=== PATIENT | female | born 1975 | race Caucasian/White ===

== ENCOUNTER 2018-05-08 12:51 | Emergency (ER) | payer OTHER ==
[2018-05-08] MEDS ORDERED: Sodium Chloride 0.9% 1,000 ML IV ONE (13:10)
[2018-05-08 13:33] LABS: SQUAMOUS EPITHIAL 90 /hpf (0-5); URINE BACTERIA OCC (<OCC); URINE BILIRUBIN NEGATIVE (NEGATIVE); URINE BLOOD 1+ (NEGATIVE); URINE CLARITY Hazy (Clear); URINE COLOR Amber (YELLOW); URINE GLUCOSE (UA) NORMAL (Normal); URINE LEUKOCYTE ESTERASE 3+ Leu/uL (Negative); URINE PROTEIN 1+ mg/dL (NEGATIVE)
[2018-05-08 13:40] LABS: BASO % 0.6 % (0.0-2.0); EOS # 0.3 K/uL (0.0-0.7); EOS % 3.4 % (0.0-4.0); LYMPH # 2.1 K/uL (1.0-4.3); LYMPH % 26.4 % (20.0-40.0); MEAN CELL VOLUME 91.2 fL (81.0-99.0); MEAN CORPUSCULAR HEMOGLOBIN 31.3 pg (27.0-31.0); MEAN CORPUSCULAR HGB CONC 34.4 g/dL (33.0-37.0); MEAN PLATELET VOLUME 9.2 fL (7.2-11.7); MONO # 0.5 K/uL (0.0-0.8); MONO % 6.6 % (0.0-10.0); NEUT # 5.1 K/uL (1.8-7.0); RBC 4.15 Mil/uL (3.80-5.20); RED CELL DISTRIBUTION WIDTH 13.5 % (11.5-14.5); WHITE BLOOD COUNT 8.1 K/uL (4.8-10.8)
[2018-05-08 14:10] LABS: ALB/GLOB RATIO 1.3 (1.0-2.1); ALBUMIN 4.4 g/dL (3.5-5.0); ALT/SGPT 108 U/L (9-52); AST/SGOT 56 U/L (14-36); BLOOD UREA NITROGEN 13 mg/dL (7-17); CALCIUM 8.7 mg/dl (8.6-10.4); GFR AFRICAN-AMERICAN > 60; GFR NON-AFRICAN AMERICAN > 60; LIPASE 71 U/L (23-300)
[2018-05-08] MEDS ORDERED: Iodixanol 320 MG/ML 100 ML BOTTLE IV ONE (15:52)
--- NOTE | 2018-05-08 16:06 | C.PDOC ---
History Of Present Illness 42 y/o female presents to ED with c/o upper abdominal pain associated with nausea for 4 days. Patient reports questionable cholecystectomy and currently denies recent travel, fever, change in diet, hematuria, constipation, diarrhea, blood in stool or any other complaints at this time. Chief Complaint (Nursing): Abdominal Pain History Per: Patient History/Exam Limitations: no limitations Onset/Duration Of Symptoms: Days Current Symptoms Are (Timing): Still Present Location Of Pain/Discomfort: RUQ, LUQ Past Medical History Reviewed: Historical Data, Nursing Documentation, Vital Signs Vital Signs: Last Vital Signs Temp 99.1 F 05/08/18 17:42 Pulse 75 05/08/18 17:42 Resp 20 05/08/18 17:42 BP 97/53 L 05/08/18 17:42 Pulse Ox 100 05/08/18 17:42 - Medical History PMH: Asthma, Gall Bladder Disease (stones removed) Surgical History: Cholecystectomy, Tonsillectomy, Family History: States: No Known Family Hx - Social History Hx Alcohol Use: Yes Hx Substance Use: No - Immunization History Hx Tetanus Toxoid Vaccination: No Hx Influenza Vaccination: No Hx Pneumococcal Vaccination: No Review Of Systems Constitutional: Negative for: Fever, Chills Gastrointestinal: Positive for: Nausea, Abdominal Pain. Negative for: Vomiting , Diarrhea, Constipation Genitourinary: Negative for: Dysuria, Hematuria Skin: Negative for: Rash Physical Exam - Physical Exam Appears: Non-toxic, No Acute Distress Skin: Warm, Diaphoretic, No Rash Head: Atraumatic, Normacephalic Eye(s): bilateral: Normal Inspection Oral Mucosa: Moist Neck: Normal ROM, Supple Cardiovascular: Rhythm Regular Respiratory: Normal Breath Sounds, No Rales, No Rhonchi, No Wheezing Gastrointestinal/Abdominal: Soft, Tenderness (mild upper quadrants), No Guarding , No Rebound, Other (surgical scar noted to right side of abdomen) Back: No CVA Tenderness, No Paraspinal Tenderness Neurological/Psych: Oriented x3, Normal Speech, Normal Cognition ED Course And Treatment - Laboratory Results Result Diagrams: 05/08/18 13:30 05/08/18 13:30 O2 Sat by Pulse Oximetry: 98 (RA) Pulse Ox Interpretation: Normal Disposition - Disposition Referrals: Shaik Richmond MD [Staff Provider] - Disposition: HOME/ ROUTINE Disposition Time: 17:15 Condition: IMPROVED Additional Instructions: ONIEL ATILES, thank you for letting us take care of you today. Your provider was Israel Miranda DO and you were treated for STOMACH PAIN. The emergency medical care you received today was directed at your acute symptoms. If you were prescribed any medication, please fill it and take as directed. It may take several days for your symptoms to resolve. Return to the Emergency Department if your symptoms worsen, do not improve, or if you have any other problems. Please contact your doctor or call one of the physicians/clinics you have been referred to that are listed on the Patient Visit Information form that is included in your discharge packet. Bring any paperwork you were given at discharge with you along with any medications you are taking to your follow up visit. Our treatment cannot replace ongoing medical care by a primary care provider outside of the emergency department. Thank you for allowing the [facility] team to be part of your care today. Follow up with your primary care doctor in 2-3 days for re-evaluation and further management. Prescriptions: Ibuprofen [Motrin] 600 mg PO Q6 PRN #20 tab PRN Reason: Pain, Moderate (4-7) Instructions: Ovarian Cyst (DC) Forms: [facility] (Niuean) - Clinical Impression Clinical Impression: Ovarian cyst - Scribe Statement The provider has reviewed the documentation as recorded by the Scribrachael Rodriguez All medical record entries made by the Scribe were at my direction and personally dictated by me. I have reviewed the chart and agree that the record accurately reflects my personal performance of the history, physical exam, medical decision making, and the department course for this patient. I have also personally directed, reviewed, and agree with the discharge instructions and disposition.
--- NOTE | 2018-05-08 17:16 | CT ---
PROCEDURE: CT Abdomen and Pelvis with contrast HISTORY: diffuse abdominal pain COMPARISON: None. TECHNIQUE: Contrast dose: 100 mL Visipaque 320 Radiation dose: Total exam DLP = 1139.98 mGy-cm. This CT exam was performed using one or more of the following dose reduction techniques: Automated exposure control, adjustment of the mA and/or kV according to patient size, and/or use of iterative reconstruction technique. FINDINGS: LOWER THORAX: Unremarkable. LIVER: Unremarkable. No gross lesion or ductal dilatation. GALLBLADDER AND BILE DUCTS: Status post cholecystectomy PANCREAS: Unremarkable. No gross lesion or ductal dilatation. SPLEEN: Unremarkable. ADRENALS: Unremarkable. No mass. KIDNEYS AND URETERS: Unremarkable. No hydronephrosis. No solid mass. VASCULATURE: Unremarkable. No aortic aneurysm. BOWEL: Unremarkable. No obstruction. No gross mural thickening. APPENDIX: Normal appendix. PERITONEUM: Trace fluid in cul-de-sac LYMPH NODES: Unremarkable. No enlarged lymph nodes. BLADDER: Nondistended REPRODUCTIVE: Unremarkable uterus. Peripherally enhancing irregularly-shaped left adnexal structure, likely ruptured or involuting left ovarian follicle/cyst. 1.8 cm diameter. BONES: Grade 1 anterolisthesis at L5-S1 without spondylolysis. No acute fracture. OTHER FINDINGS: None. IMPRESSION: Ruptured or involuting left ovarian follicle/cyst, 1.8 cm. Small amount of fluid in cul-de-sac. The remainder of the examination is unremarkable. The 2 call is a augmented bulge and all were 1 that were noted about right total into a now 1 8 over their reassess
[2018-05-08 17:42] VITALS: BP 97/53; PULSE 75; RESP 20; TEMP 99.1
[2018-05-09 00:37] VITALS: O2SAT 98
== END 2018-05-08 17:50 | disposition home or self-care (01) ==
LOC: C.ER 12:51
DX: N83.202 Unspecified ovarian cyst, left side (principal)
CPT/HCPCS: 74177; 80053; 81001; 83690; 84484; 85025; 87086; 96361; 96374; 96375; 99285; J2765; J7030; Q9967

== ENCOUNTER 2018-08-23 07:07 | Emergency (ER) | payer OTHER ==
[2018-08-23 07:33] VITALS: BP 177/85; PULSE 105; RESP 18; TEMP 98.7; O2SAT 100
--- NOTE | 2018-08-23 07:52 | C.PDOC ---
Time Seen by Provider: 08/23/18 07:22 Chief Complaint (Nursing): Lower Extremity Problem/Injury Past Medical History Vital Signs: Last Vital Signs Temp 98.7 F 08/23/18 07:30 Pulse 105 H 08/23/18 07:30 Resp 18 08/23/18 07:30 BP 177/85 H 08/23/18 07:30 Pulse Ox 100 08/23/18 07:30 - Medical History PMH: Asthma, Gall Bladder Disease (stones removed) Surgical History: Cholecystectomy, Tonsillectomy, (x2) Family History: States: Unknown Family Hx - Social History Hx Alcohol Use: Yes Hx Substance Use: No - Immunization History Hx Tetanus Toxoid Vaccination: No Hx Influenza Vaccination: No Hx Pneumococcal Vaccination: No ED Course And Treatment O2 Sat by Pulse Oximetry: 100 Disposition - Disposition Disposition Time: 08:00 Forms: [facility] ([place]an) - POA Present On Arrival: None
--- NOTE | 2018-08-23 07:54 | C.PDOC ---
History Of Present Illness 43-year-old female, presents to the emergency department with complaints of two week duration of left heel pain. Patient seen by dwarf tree grower who gave her Cortisone shot that did not work. 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 Pt notes she returned to dwarf tree grower who advised pt take anti inflammatory medication. Patient denies any numbness/weakness. No other complaints at this time. Time Seen by Provider: 08/23/18 07:22 Chief Complaint (Nursing): Lower Extremity Problem/Injury History Per: Patient History/Exam Limitations: no limitations Onset/Duration Of Symptoms: Days Current Symptoms Are (Timing): Still Present Severity: Moderate Past Medical History Reviewed: Historical Data, Nursing Documentation, Vital Signs Vital Signs: Last Vital Signs Temp 98.7 F 08/23/18 07:30 Pulse 105 H 08/23/18 07:30 Resp 18 08/23/18 07:30 BP 177/85 H 08/23/18 07:30 Pulse Ox 100 08/23/18 07:55 - Medical History PMH: Asthma, Gall Bladder Disease (stones removed) Surgical History: Cholecystectomy, Tonsillectomy, (x2) Family History: States: No Known Family Hx - Social History Hx Alcohol Use: Yes Hx Substance Use: No - Immunization History Hx Tetanus Toxoid Vaccination: No Hx Influenza Vaccination: No Hx Pneumococcal Vaccination: No Review Of Systems Musculoskeletal: Positive for: Foot Pain Physical Exam - Physical Exam Appears: Non-toxic, No Acute Distress Skin: Warm, Dry, No Rash Head: Atraumatic, Normacephalic Eye(s): bilateral: Normal Inspection Nose: Normal Oral Mucosa: Moist Lips: Normal Appearing Neck: Normal ROM Cardiovascular: No Rhythm Regular Respiratory: No Accessory Muscle Use Extremity: Normal ROM, Tenderness (left heel), No Deformity, No Swelling Pulses: Left Dorsalis Pedis: Normal, Right Dorsalis Pedis: Normal Neurological/Psych: Oriented x3, Normal Speech ED Course And Treatment O2 Sat by Pulse Oximetry: 100 Pulse Ox Interpretation: Normal (RA) Progress Note: Patient eloped from ED prior to AMA Against Medical Advice - AMA Patient Left Against Medical Advice: The patient declines admission to the hospital and wishes to leave the Emergency Department. This action is against my medical advice. This decision was made with informed refusal. The patient was told that admission to the hospital is necessary. Explanation of the reasons why were discussed. The risks of leaving were explained to the patient and include, but are not limited to, worsening of known or currently unknown conditions, permanent disability and from undiagnosed or untreated conditions. The patient has the capacity to make this informed decision and understands my explanation of the current medical problem and risks of leaving. The patient voluntarily accepts these risks and signed an AMA form documenting our conversation. The patient was given the opportunity to ask questions and reconsider. The patient was encouraged to return to the Emergency Department at any time for further care. Disposition - Disposition Disposition: ELOPEMENT - ER ONLY Disposition Time: 08:00 Condition: GOOD Forms: [facility] ([place]ian) - POA Present On Arrival: None - Clinical Impression Clinical Impression: Foot pain, left - Scribe Statement The provider has reviewed the documentation as recorded by the Scribe (Michelle Ann) All medical record entries made by the Scribe were at my direction and personally dictated by me. I have reviewed the chart and agree that the record accurately reflects my personal performance of the history, physical exam, medical decision making, and the department course for this patient. I have also personally directed, reviewed, and agree with the discharge instructions and disposition.
== END 2018-08-23 08:03 | disposition left against medical advice (07) ==
LOC: C.ER 07:07
DX: M79.672 Pain in left foot (principal)